=== PATIENT | female | born 1990 | race Caucasian/White ===

== ENCOUNTER 2019-09-28 10:42 | Emergency (ER) | payer MEDICAID ==
[~2019-09-28] VITALS: Ht 172.7 cm; Wt 80.0 kg
[~2019-09-28 10:42] MED LIST: FOLIC ACID; PRENATAL VIT
[2019-09-28 11:03] VITALS: BP 132/85
[2019-09-28] MEDS ORDERED: PENI500T2 PO (11:58)
[2019-09-28] MEDS ORDERED: HYDROcodone/acetaminophen 5mg/325mg tablet PO ONE ×2 (12:00→12:15)
== END 2019-09-28 12:22 | disposition home or self-care (01) ==
LOC: ER 10:42
DX: K08.89 Other specified disorders of teeth and supporting structures (principal); F41.9 Anxiety disorder, unspecified; F32.9 Major depressive disorder, single episode, unspecified; Z56.0 Unemployment, unspecified; Z88.8 Allergy status to other drugs, medicaments and biological substances
CPT/HCPCS: 99283

== ENCOUNTER 2019-09-30 18:10 | Emergency (ER) | payer MEDICAID ==
[~2019-09-30] VITALS: Ht 172.7 cm; Wt 72.7 kg
[~2019-09-30 18:10] MED LIST changes: +PENI500T2 PO
[2019-09-30 18:56] VITALS: BP 112/56
== END 2019-09-30 18:58 | disposition home or self-care (01) ==
LOC: ER 18:11
DX: K08.89 Other specified disorders of teeth and supporting structures (principal); F41.9 Anxiety disorder, unspecified; F32.9 Major depressive disorder, single episode, unspecified; F10.99 Alcohol use, unspecified with unspecified alcohol-induced disorder; Z56.0 Unemployment, unspecified; Z59.0 Homelessness; Z88.8 Allergy status to other drugs, medicaments and biological substances; Z79.899 Other long term (current) drug therapy; Y90.9 Presence of alcohol in blood, level not specified
CPT/HCPCS: 99281

== ENCOUNTER 2020-04-14 10:22 | Emergency (ER) | payer MEDICAID ==
[~2020-04-14] VITALS: Ht 172.7 cm; Wt 87.0 kg
[~2020-04-14 10:22] MED LIST changes: -PENI500T2 PO
[2020-04-14 10:27] VITALS: BP 152/82
--- NOTE | 2020-04-14 10:35 | NUR ---
Pt went to the [facility] yesterday and she ended up walking out. Pt tried to get in to [facility] and they cannot get her in until 05/15.
--- NOTE | 2020-04-14 10:39 | NUR ---
RACHEL Palmer at bedside.
[2020-04-14] MEDS ORDERED: cyclobenzaprine 10mg tablet PO ONE (10:45)
[2020-04-14] MEDS ORDERED: LIDOcaine 1% 30ml preserv. free vial SQ STA (10:45)
[2020-04-14] MEDS ORDERED: CYCL-1 PO (11:07)
== END 2020-04-14 11:18 | disposition home or self-care (01) ==
LOC: ER 10:22
DX: S29.012A Strain of muscle and tendon of back wall of thorax, initial encounter (principal); G89.29 Other chronic pain; M54.5 Low back pain; F17.210 Nicotine dependence, cigarettes, uncomplicated; Z59.0 Homelessness; Z56.0 Unemployment, unspecified; Z88.8 Allergy status to other drugs, medicaments and biological substances; Z88.1 Allergy status to other antibiotic agents; X50.0XXA Overexertion from strenuous movement or load, initial encounter; Y93.89 Activity, other specified; Y92.89 Other specified places as the place of occurrence of the external cause; Y99.9 Unspecified external cause status
CPT/HCPCS: 20552; 99284

== ENCOUNTER 2021-03-14 12:39 | Emergency (ER) | payer MEDICAID ==
[~2021-03-14] VITALS: Ht 172.7 cm; Wt 68.2 kg
[~2021-03-14 12:39] MED LIST changes: +CYCL-1 PO
[2021-03-14 13:19] LABS: CLARITY,URINE CLOUDY (Clear); GLUCOSE, URINE NEGATIVE (Neg); KETONES,URINE TRACE mg/dl (Neg); LEUKOCYTE ESTERASE ,URINE NEGATIVE (Neg); NITRITES, URINE NEGATIVE (Neg); OCCULT BLOOD,URINE LARGE (Neg); PH,URINE 5.5 (4.8-8.0); PROTEIN,URINE 100 mg/dl (Neg)
[2021-03-14 13:20] LABS: URINE HCG NEGATIVE (NEG)
[2021-03-14 13:21] LABS: COLOR,URINE DARK YELLOW (Yellow); UA COLLECTION TYPE CLN CATCH MIDSTREAM
[2021-03-14 13:29] LABS: ALANINE AMINOTRANSFERASE 21 U/L (12-78); ALBUMIN 4.7 G/DL (3.4-5.0); ALBUMIN/GLOBULIN RATIO 1.2 (1.1-1.5); ALKALINE PHOSPHATASE 71 IU/L (46-116); AMYLASE 33 U/L (25-115); ANION GAP 10 (8-16); ASPARTATE AMINO TRANSFERASE 14 U/L (10-37); BILIRUBIN,TOTAL 2.7 MG/DL (0.1-1.0); BLOOD UREA NITROGEN 17 MG/DL (7-18); BUN/CREATININE RATIO 21.5 (6.6-38.0); CALCIUM 9.6 MG/DL (8.5-10.1); CHLORIDE 101 MMOL/L (99-107); CREATININE 0.79 MG/DL (0.40-0.90); GLUCOSE 113 MG/DL (70-104); LIPASE < 50 U/L (73-393); POTASSIUM 3.5 MMOL/L (3.5-5.1); SODIUM 137 MMOL/L (135-145); TOTAL CARBON DIOXIDE 26.2 MMOL/L (24-32); TOTAL PROTEIN 8.6 G/DL (6.4-8.2); eGFR 87 ML/MIN
[2021-03-14 13:31] LABS: MUCUS STRANDS MANY /LPF (Neg); SQUAMOUS EPITHELIAL CELL,UR MANY /LPF (FEW)
[2021-03-14 13:32] LABS: RBC,URINE TNTC /HPF (0-2)
[2021-03-14 13:35] LABS: BACTERIA,URINE 1+ /HPF (Neg)
[2021-03-14 13:42] LABS: BASOPHILS # (AUTO) 0.1 X10'3 (0-0.2); BASOPHILS % (AUTO) 0.7 % (0-1); EOSINOPHILS # (AUTO) 0.1 X10'3 (0-0.9); EOSINOPHILS % (AUTO) 0.5 % (0-6); HEMATOCRIT 36.1 % (35.0-45.0); LYMPHOCYTES % (AUTO) 19.2 % (21-51); MEAN CORPUSCULAR HEMOGLOBIN 29.4 PG (27.0-31.0); MEAN CORPUSCULAR HGB CONC 33.2 g/dL (33.0-36.5); MEAN CORPUSCULAR VOLUME 88.4 FL (78-98); MEAN PLATELET VOLUME 8.1 FL (7.4-10.4); MONOCYTES # (AUTO) 0.7 X10'3 (0-0.9); MONOCYTES % (AUTO) 7.1 % (2-12); NEUTROPHILS # (AUTO) 7.5 X10'3 (1.8-7.7); NEUTROPHILS % (AUTO) 72.5 % (42-75); PLATELET COUNT 559 X10'3 (140-440); RED BLOOD COUNT 4.09 X10'6 (4.20-5.60); RED CELL DISTRIBUTION WIDTH 14.1 % (11.5-14.5); WHITE BLOOD COUNT 10.3 X10'3 (4.5-11.0)
[2021-03-14] MEDS ORDERED: LORazepam 1 MG tablet PO ONE (14:35)
[2021-03-14 16:30] VITALS: BP 124/88
[2021-03-14 16:49] LABS: ACETAMINOPHEN < 2.0 UG/ML (10-30)
== END 2021-03-14 17:35 | disposition home or self-care (01) ==
LOC: ER 12:40
DX: E80.6 Other disorders of bilirubin metabolism (principal); R00.2 Palpitations; R07.89 Other chest pain; R10.84 Generalized abdominal pain; F41.9 Anxiety disorder, unspecified; F32.9 Major depressive disorder, single episode, unspecified; F15.90 Other stimulant use, unspecified, uncomplicated; Z56.0 Unemployment, unspecified; Z59.0 Homelessness; Z88.8 Allergy status to other drugs, medicaments and biological substances; Z88.1 Allergy status to other antibiotic agents; Z79.899 Other long term (current) drug therapy
CPT/HCPCS: 36415; 76700; 76705; 80053; 80329; 81001; 81025; 82150; 83690; 85025; 93005; 99285

== ENCOUNTER 2023-09-25 19:44 | Emergency (ER) | payer MEDICAID ==
[~2023-09-25] VITALS: Ht 172.7 cm; Wt 72.7 kg
[2023-09-25 21:09] VITALS: BP 128/77; PULSE 98; RESP 17; TEMP 97.5; O2SAT 99
== END 2023-09-25 21:11 | disposition home or self-care (01) ==
LOC: ER 19:44
DX: O26.893 Other specified pregnancy related conditions, third trimester (principal); Z3A.37 37 weeks gestation of pregnancy; F15.90 Other stimulant use, unspecified, uncomplicated; Z88.8 Allergy status to other drugs, medicaments and biological substances; Z79.899 Other long term (current) drug therapy; Z98.890 Other specified postprocedural states
CPT/HCPCS: 99283

== ENCOUNTER 2024-04-03 21:05 | Emergency (ER) | payer MEDICAID ==
[~2024-04-03] VITALS: Ht 172.7 cm; Wt 91.0 kg
[2024-04-03 21:12] VITALS: BP 141/76; PULSE 79; RESP 18; TEMP 98.3; O2SAT 98
== END 2024-04-04 00:21 | disposition left against medical advice (07) ==
LOC: ER 21:06
DX: J02.9 Acute pharyngitis, unspecified (principal); Z53.21 Procedure and treatment not carried out due to patient leaving prior to being seen by health care provider

== ENCOUNTER 2025-05-29 11:18 | Emergency (ER) | payer MEDICAID ==
[~2025-05-29] VITALS: Ht 172.7 cm; Wt 95.0 kg
[2025-05-29 11:24] VITALS: TEMP 97.8
--- NOTE | 2025-05-29 11:57 | Physician Documentation ---
History of Present Illness ~ Chief Complaint: Back Pain Stated Complaint: BACK PAIN Time Seen by MD: 11:57 Primary Medical Doctor: [facility] 34-year-old female with a history of back pain ever since lifting furniture in 2018. She has undergone physical therapy, and has seen her primary care for this multiple times. In the last week, the pain has gotten worse. She has been to both [facility] and her primary care provider. She has been taking muscle relaxants, gabapentin, NSAIDs. A new symptom in the last couple of days is leaking of stool and numbness around the rectum. She denies urinary symptoms or problems. Medication Reconciliation Allergies: Coded Allergies: carisoprodol (Verified Allergy, Unknown, 05/29/25) escitalopram oxalate (Verified Allergy, Unknown, 05/29/25) metronidazole (Verified Allergy, Unknown, 05/29/25) Scheduled Cyclobenzaprine* (Cyclobenzaprine*), 1 TAB PO HS Naproxen (Naproxen), 1 TAB PO Q12H Tizanidine Hcl (Zanaflex), 1 TAB PO Q8H Scheduled PRN Hydrocodone Bit/Acetaminophen 5/325 MG ([place] 5/325 MG), 1 TAB PO Q6H PRN for pain Miscellaneous Medications [Folic Acid], (Reported) [ Vit], (Reported) Past Medical History Past Medical History: Anxiety, Depression, Panic Disorder Past Surgical History: Alcohol Use: None Drug Use: methamphetamine Lives with: Family Lives In: Homeless Occupation: unemployed Review of Systems ROS As stated above in the HPI, otherwise all systems are reviewed and negative. Physical Exam Physical Exam Vital Signs: Temperature: 97.8, Source: Temporal, Heart Rate: 90, Respiratory Rate: 18, BP: 137/87, Pulse Oximetry: 99, Weight: 94.950 Oxygen Flow Rate: 0 Physical Exam General: Alert, no apparent distress. Appears anxious. Neck: Full range of motion. Respiratory: Lungs clear, no respiratory distress. Chest: No accessory muscle use. Cardiovascular: Regular rate and rhythm, no murmurs. Gastrointestinal: Soft, nontender, nondistended. Bowels sounds present. Rectum: Good tone. Reports reduced sensation with palpation around anus. Extremities: Normal range of motion, no deformity. Neurologic: Oriented x4. Absent right patellar reflex, reduced left patellar reflex. TTP lower sacrum. Psychiatric: Anxious, good eye contact. Skin: Normal color, warm and dry. No edema, no ecchymosis. Progress Progress Note 1208: Physical exam with concerning findings of absent right patellar reflex and patient's subjective report of reduced sensation to palpation around rectum. Discussed with attending EDMD Kai who affirms plan for lumbar MRI with and without contrast. 1508: Returns from MRI. Results/Orders Results/Orders Orders - MARCELLA MCCLURE LOGISTICS CLERK Mri Lumbar Spine (05/29/25 14:40) * Iv Access / Saline Lock * (05/29/25 12:07) Completed Orders - MARCELLA MCCLURE LOGISTICS CLERK Urinalysis, Cult If Indicated (05/29/25 12:07) Hcg, Ur Ql (05/29/25 12:07) Mri Lumbar Spine (05/29/25 14:40) Hydrocodone/Apap 5/325mg Tab ([place] 5/32 (05/29/25 12:10) CMP (05/29/25 12:08) Cbc/Diff (05/29/25 12:08) Hydrocodone/Apap 5/325mg Tab ([place] 5/32 (05/29/25 15:30) Medications Received in ER Medications (Trade) Dose Ordered Sig/Sameer Route PRN Reason Start Time Stop Time Status Last Admin Dose Admin ([place] 5/325mg tablet) 1 tab ONCE ONCE PO 05/29/25 12:10 05/29/25 12:11 DC 05/29/25 12:26 1 TAB Vital Signs 05/29/25 05/29/25 05/29/25 11:24 12:26 12:31 Temp 97.8 Pulse 90 74 Resp 18 15 14 B/P (MAP) 137/87 119/77 (91) Pulse Ox 99 100 O2 Flow Rate 0 Laboratory Tests Test 05/29/25 12:20 05/29/25 12:29 White Blood Count 9.8 Red Blood Count 4.60 Hemoglobin 11.7 L Hematocrit 36.0 Mean Corpuscular Volume 78.2 Mean Corpuscular Hemoglobin 25.4 L Mean Corpuscular Hemoglobin Concent 32.5 L Red Cell Distribution Width 15.0 H Platelet Count 498 H Mean Platelet Volume 8.6 Neutrophils (%) (Auto) 67.1 Lymphocytes (%) (Auto) 23.4 Monocytes (%) (Auto) 6.6 Eosinophils (%) (Auto) 2.2 Basophils (%) (Auto) 0.7 Neutrophils # (Auto) 6.6 Lymphocytes # (Auto) 2.3 Monocytes # (Auto) 0.6 Eosinophils # (Auto) 0.2 Basophils # (Auto) 0.1 CBC Comment Sodium Level 138 Potassium Level 3.9 Chloride Level 105 Carbon Dioxide Level 24.8 Anion Gap 8 Blood Urea Nitrogen 10 Creatinine 0.97 H Estimated GFR/1.73 m2 67 BUN/Creatinine Ratio 10.3 Glucose Level 97 Calcium Level 9.2 Total Bilirubin 0.6 Aspartate Amino Transf (AST/SGOT) 17 Alanine Aminotransferase (ALT/SGPT) 20 Alkaline Phosphatase 73 Total Protein 7.8 Albumin 4.0 Globulin 3.8 Albumin/Globulin Ratio 1.1 Chemistry Comments Urine Specimen Description Urinal Urine Color Straw Urine Clarity Clear Urine pH 6.0 Urine Specific [place] <=1.005 Urine Protein Negative Urine Glucose (UA) Negative Urine Ketones Negative Urine Occult Blood Negative Urine Nitrite Negative Urine Bilirubin Negative Urine Urobilinogen 0.2 Urine Leukocyte Esterase Negative Urine Culture Indicated Not ind Volume Urine Centrifuged 10 ml Urine HCG, Qualitative Negative Urine Comment EKG/XRAY/CT/US/VASC/MRI MRI : Impression [place] [id number] MRI Patient: SIMONA RAMOS Medical Record: [id number] [facility] 1990, Age: 34 Sex: Female Location: ER Patient Status: [facility] ER Service Date/Time: 05/29/251439 Ordering Physician: MARCELLA MCCLURE NP Exam: MRI LUMBAR SPINE CLINICAL INFORMATION: Numbness in the rectal area. Back pain. TECHNIQUE: Multisequence multiplanar MRI images of the lumbar spine were obtained prior to and after the administration of 15 mL Clariscan contrast. COMPARISON: None INTERPRETATION: Motion artifact limits evaluation on some sequences. There are 6 [id number]-ljv-[id number] lumbar type vertebrae with transitional vertebra at the lumbosacral junction, which is designated a lumbarized S1 for the purposes of numbering on this exam, with rudimentary disc at S1-S2. There is minimal retrolisthesis of L5 on S1. Vertebral body heights are maintained. Posterior elements are intact. No focal suspicious marrow signal abnormality. Visualized spinal cord and cauda equina are within normal limits. No abnormal epidural or leptomeningeal enhancement. The conus medullaris is appropriate in signal at the L1-L2 level. Moderate fatty atrophy of the paraspinal musculature in the lower lumbosacral spine. No abnormal paraspinal enhancement. L1-L2: No significant disc/facet abnormality. No significant spinal canal or neural foraminal stenosis. L2-L3: No significant disc/facet abnormality. No significant spinal canal or neural foraminal stenosis. L3-L4: No significant disc/facet abnormality. No significant spinal canal or neural foraminal stenosis. L4-L5: Minimal disc bulge mildly indenting the ventral aspect of the thecal sac. No significant spinal canal stenosis. Facet hypertrophy with [id number]-bm-[id number] bilateral neural foraminal stenoses. L5-S1: Disc desiccation with mfot-[id number]-drgwqgwr disc space narrowing. Diffuse disc bulge and superimposed left foraminal disc protrusion contributing to mild spinal canal stenosis and effacement of the left lateral recess. Facet hypertrophy with moderate bilateral neural foraminal stenoses, left greater than right. IMPRESSION: 1. Degenerative disc disease and facet disease in the lumbar spine at L4-L5 and L9-FAxwg-of-moderate bilateral neural foraminal stenosis at L4-L5 and mild spinal canal stenosis, effacement of the left lateral recess, and moderate bilateral neural foraminal stenoses, left greater than right at L5-S1. 2. Minimal retrolisthesis of L5 on S1. 3. No abnormal postcontrast enhancement. 4. Visualized portions of the spinal cord and cauda equina nerve roots are within normal limits. 5. Additional findings as described above. Electronically Signed by:JACOBY HENRY DO Date & Time: 05/29/25 1524 Dictated by: JACOBY HENRY DO Dictation date and time: 05/29/25 1400 Primary Care Provider: NO PRIMARY CARE PROVIDER cc: MARCELLA MCCLURE NP ~ Medical Decision Making Differential Diagnosis Patient was found to have multilevel degenerative disc disease, but no evidence of cauda equina syndrome or MRI. Case discussed with the attending ED MD Quinn who affirms plan to discharge, have patient follow up with the primary care, should be referred to physical therapy and spinal specialist. Patient was given instructions to return if worse, particularly for numbness in the groin, weakness in the legs, any other concerns that she is getting significantly worse. Patient will be provided with a copy of her MRI to take to her primary care. Departure Time of Disposition: 15:31 Disposition: 01 HOME / SELF CARE / HOMELESS Impression: Primary Impression: Lumbar disc disease Additional Impression: Low back pain Discharge Instructions: Acute Back Pain, Adult, Lumbosacral Strain Additional Instructions: No surgical emergency found on your imaging today. You do, however, have multi-level degenerative disc disease. Please see your primary care provider soon. Request a referral to physical therapy and also spinal specialist like Phi/Chris/or Ana. Return if worse. Referrals: NO PRIMARY CARE PROVIDER (PCP) Prescriptions Hydrocodone Bit/Acetaminophen 5/325 MG ([place] 5/325 MG) 5 Mg/325 Mg Tablet 1 TAB PO Q6H PRN for pain, #10 TAB Prov: MARCELLA MCCLURE NP 05/29/25 Naproxen (Naproxen) 500 Mg Tablet 1 TAB PO Q12H, #20 TAB Prov: MARCELLA MCCLURE NP 05/29/25 Tizanidine Hcl (Zanaflex) 2 Mg Tablet 1 TAB PO Q8H for muscle relaxant for 30 Days, #90 TAB 0 Refills Prov: MARCELLA MCCLURE NP 05/29/25 Education Educated: Patient Educated regarding: diagnosis, treatment, prognosis, need for follow up Signature Scribe Signature: no scribe Attestation: The note accurately reflects work and decisions made by me.Marcella Tompkins NP 05/29/25 12:11 MARCELLA MCCLURE NP May 29, 2025 11:57
[2025-05-29] MEDS: HYDROcodone/acetaminophen 5mg/325mg tablet PO ONE ×2 (12:26→15:43)
[2025-05-29 12:37] LABS: MEAN PLATELET VOLUME 8.6 FL (7.4-10.4); RED CELL DISTRIBUTION WIDTH 15.0 % (11.5-14.5)
[2025-05-29 12:42] LABS: URINE HCG NEGATIVE (NEG)
[2025-05-29 12:49] LABS: LEUKOCYTE ESTERASE ,URINE NEGATIVE (Neg); NITRITES, URINE NEGATIVE (Neg); OCCULT BLOOD,URINE NEGATIVE (Neg); UA COLLECTION TYPE URINAL
[2025-05-29 12:54] LABS: CREATININE 0.97 MG/DL (0.40-0.90); TOTAL CARBON DIOXIDE 24.8 MMOL/L (24-32); eCRCL 84 ML/MIN; eGFR 67 ML/MIN
--- NOTE | 2025-05-29 15:26 | RADIOLOGY REPORT ---
CLINICAL INFORMATION: Numbness in the rectal area. Back pain. TECHNIQUE: Multisequence multiplanar MRI images of the lumbar spine were obtained prior to and after the administration of 15 mL Clariscan contrast. COMPARISON: None INTERPRETATION: Motion artifact limits evaluation on some sequences. There are 6 mur-dwv-[id number] lumb ar type vertebrae with transitional vertebra at the lumbosacral junction, which is designated a lumba rized S1 for the purposes of numbering on this exam, with rudimentary disc at S1-S2. There is minimal retrolisthesis of L5 on S1. Vertebral body heights are maintained. Posterior elements are intact. No focal suspicious marrow signal abnormality. Visualized spinal cord and cauda equina are within normal limits. No abnormal epidural or leptomeningeal enhancement. The conus medullaris is appropria te in signal at the L1-L2 level. Moderate fatty atrophy of the paraspinal musculature in the lower l umbosacral spine. No abnormal paraspinal enhancement. L1-L2: No significant disc/facet abnormality. No significant spinal canal or neural foraminal stenos is. L2-L3: No significant disc/facet abnormality. No significant spinal canal or neural foraminal stenos is. L3-L4: No significant disc/facet abnormality. No significant spinal canal or neural foraminal stenos is. L4-L5: Minimal disc bulge mildly indenting the ventral aspect of the thecal sac. No significant spin al canal stenosis. Facet hypertrophy with mdtq-at-bnrteqxc bilateral neural foraminal stenoses. L5-S1: Disc desiccation with wosf-nc-utcxrrzz disc space narrowing. Diffuse disc bulge and superimpo sed left foraminal disc protrusion contributing to mild spinal canal stenosis and effacement of the l eft lateral recess. Facet hypertrophy with moderate bilateral neural foraminal stenoses, left greater than right. IMPRESSION: 1. Degenerative disc disease and facet disease in the lumbar spine at L4-L5 and Y4-OEfkx-pf-moderate bilateral neural foraminal stenosis at L4-L5 and mild spinal canal stenosis, effacement of the left l ateral recess, and moderate bilateral neural foraminal stenoses, left greater than right at L5-S1. 2. Minimal retrolisthesis of L5 on S1. 3. No abnormal postcontrast enhancement. 4. Visualized portions of the spinal cord and cauda equina nerve roots are within normal limits. 5. Additional findings as described above.
[2025-05-29] MEDS ORDERED: HYDR-3965 PO (15:33)
[2025-05-29] MEDS ORDERED: TIZA-189 PO (15:33)
[2025-05-29] MEDS ORDERED: NAPR-56 PO (15:33)
[2025-05-29 15:51] VITALS: BP 131/84; PULSE 76; RESP 14; O2SAT 99
[2025-05-29] MEDS ORDERED: GADOTERATE MEGLUMINE 7.5 MMOL/15 ML VIAL IV ONE (18:40)
== END 2025-05-29 15:57 | disposition home or self-care (01) ==
LOC: ER 11:19
DX: M51.360 Other intervertebral disc degeneration, lumbar region with discogenic back pain only (principal); R20.0 Anesthesia of skin; Z88.1 Allergy status to other antibiotic agents
CPT/HCPCS: 36415; 72158; 80053; 81003; 81025; 85025; 99285

== ENCOUNTER 2025-06-19 12:26 | Emergency (ER) | payer MEDICAID ==
[~2025-06-19] VITALS: Ht 172.7 cm; Wt 94.1 kg
[~2025-06-19 12:26] MED LIST changes: +HYDR-3965 PO; +NAPR-56 PO; +TIZA-189 PO
[2025-06-19 12:29] VITALS: BP 120/76; PULSE 91; RESP 15; TEMP 98.2; O2SAT 100
[2025-06-19 12:48] LABS: LEUKOCYTE ESTERASE ,URINE NEGATIVE (Neg); NITRITES, URINE NEGATIVE (Neg); OCCULT BLOOD,URINE NEGATIVE (Neg)
[2025-06-19 12:50] LABS: UA COLLECTION TYPE CLN CATCH MIDSTREAM
[2025-06-19] MEDS ORDERED: CEPH-585 PO (13:09)
--- NOTE | 2025-06-19 13:09 | Physician Documentation ---
History of Present Illness ~ Chief Complaint: Abscess Stated Complaint: ABD PAIN Time Seen by MD: 12:38 Primary Medical Doctor: [facility] [place] HPI Presents with two days of an increasing pain and inflammation in the left lower quadrant. States she thinks there is an abscess developing in the her perineal area. Denies any fevers nausea vomiting Day of Onset: Jun 19, 2025 Tetanus Within 5 Years: Yes (2020) Medication Reconciliation Allergies: Coded Allergies: carisoprodol (Verified Allergy, Unknown, 05/29/25) escitalopram oxalate (Verified Allergy, Unknown, 05/29/25) metronidazole (Verified Allergy, Unknown, 05/29/25) sulfamethoxazole (Verified Allergy, Unknown, 06/19/25) trimethoprim (Verified Allergy, Unknown, 06/19/25) Scheduled Cephalexin*Monohydrate* (Keflex*), 1 CAP PO QID Cyclobenzaprine* (Cyclobenzaprine*), 1 TAB PO HS Naproxen (Naproxen), 1 TAB PO Q12H Tizanidine Hcl (Zanaflex), 1 TAB PO Q8H Scheduled PRN Hydrocodone Bit/Acetaminophen 5/325 MG ([place] 5/325 MG), 1 TAB PO Q6H PRN for pain Miscellaneous Medications [Folic Acid], (Reported) [ Vit], (Reported) Past Medical History Past Medical History: Anxiety, Depression, Panic Disorder Past Surgical History: Alcohol Use: None Drug Use: methamphetamine Lives with: Family Lives In: Homeless Occupation: unemployed Review of Systems All Other Systems at this time: Reviewed and Negative ROS As stated above in the HPI, otherwise all systems are reviewed and negative. Physical Exam Vital Signs: Temperature: 98.2, Source: Temporal, Heart Rate: 91, Respiratory Rate: 15, BP: 120/76, Pulse Oximetry: 100, Weight: 94.090 Physical Exam General: Alert, no apparent distress. Psychiatric: Normal mood and affect. Skin: Normal color, warm and dry. Muscle lower quadrant near peroneal air has a erythematous area approximately 8 cm in width and height no fluctuance evidence Progress Results/Orders Results/Orders Completed Orders - AV DAVENPORT TACTICAL RESPONSE GROUP OFFICER Sulfamethox/Trimetho. Ds Tab (Septra Ds (06/19/25 13:10) Cephalexin Capsule (Keflex Capsule) (06/19/25 13:10) Vital Signs 06/19/25 12:29 Temp 98.2 Pulse 91 Resp 15 B/P (MAP) 120/76 Pulse Ox 100 Laboratory Tests Test 06/19/25 12:33 Urine Specimen Description Cln catch midstream Urine Color Straw Urine Clarity Clear Urine pH 6.0 Urine Specific [place] <=1.005 Urine Protein Negative Urine Glucose (UA) Negative Urine Ketones Negative Urine Occult Blood Negative Urine Nitrite Negative Urine Bilirubin Negative Urine Urobilinogen 0.2 Urine Leukocyte Esterase Negative Urine Culture Indicated Not ind Volume Urine Centrifuged 10 ml Urine Comment Medical Decision Making Findings Treating for cellulitis, patient left without receiving medication Differential Dx:Considerations: Include: Abscess, Bacteremia, Cellulitis, Erysipelas, Felon, Gas gangrene, Hidrademitis suppurativa, Impetigo, Lymphangitis, Osteromyelitis, Paronychia, Septicemia, Other Departure Disposition: HOME / SELF CARE / HOMELESS Impression: Primary Impression: Methamphetamine abuse Additional Impression: Cellulitis Condition: Stable Discharge Instructions: Abscess, Care After, Incision and Drainage Referrals: NO PRIMARY CARE PROVIDER (PCP) Prescriptions Cephalexin*Monohydrate* (Keflex*) 500 Mg Capsule 1 CAP PO QID, #40 CAP Prov: AV DAVENPORT [employer]SE [employer] OFFICER 06/19/25 Education Educated: Patient Educated regarding: diagnosis Signature Scribe Signature: c Attestation: Scribed for Av Davenport Adjunct Instructor In Economics by Av Davenport - RICHY . 06/19/25 18:07 AV DAVENPORT TACT[employer] RESPONSE GROUP OFFICER Jun 19, 2025 13:09
[2025-06-19] MEDS ORDERED: sulfamethoxazole/trimethoprim DS (800/160mg) tablet PO ONE (13:10)
== END 2025-06-19 13:10 | disposition home or self-care (01) ==
LOC: ER 12:26
DX: L02.215 Cutaneous abscess of perineum (principal); L03.311 Cellulitis of abdominal wall; F15.10 Other stimulant abuse, uncomplicated; F41.9 Anxiety disorder, unspecified; F32.A Depression, unspecified; Z88.8 Allergy status to other drugs, medicaments and biological substances; Z88.2 Allergy status to sulfonamides; Z88.1 Allergy status to other antibiotic agents; Z79.899 Other long term (current) drug therapy; Z56.0 Unemployment, unspecified; Z59.00 Homelessness unspecified
CPT/HCPCS: 81003; 99283